=== PATIENT | female | born 1960 | race Caucasian/White ===

== ENCOUNTER → 2024-01-14 15:40 | Outpatient (REF) | payer BC, SELFPAY | LOC: HWRAD 15:40 | PROVIDERS: ATTENDING PHYSICIAN Nurse Practitioner | DX: M25.551 Pain in right hip (principal); Z00.00 Encounter for general adult medical examination without abnormal findings | CPT/HCPCS: 73502; 73564 ==

== ENCOUNTER → 2024-08-09 13:20 | Outpatient (REF) | payer MEDICARE, OTHER, SELFPAY | LOC: HWWDC 13:20 | PROVIDERS: ATTENDING PHYSICIAN Nurse Practitioner Adult Health; FAMILY PHYSICIAN Internal Medicine | DX: Z12.31 Encounter for screening mammogram for malignant neoplasm of breast (principal); Z78.0 Asymptomatic menopausal state | CPT/HCPCS: 77063; 77067; 77080 ==

== ENCOUNTER → 2024-08-18 09:38 | Outpatient (REF) | payer MEDICARE, OTHER, SELFPAY | LOC: WDC 09:38 | PROVIDERS: ATTENDING PHYSICIAN Nurse Practitioner Adult Health; FAMILY PHYSICIAN Internal Medicine | DX: R92.8 Other abnormal and inconclusive findings on diagnostic imaging of breast (principal) | CPT/HCPCS: 77065 ==

== ENCOUNTER → 2024-08-29 06:59 | Outpatient (REF) | payer MEDICARE, OTHER, SELFPAY ==
--- NOTE | 2024-08-29 13:57 | OID.BR.INTR ---
[facility] Breast Navigator - Initial
- -
Date of Contact: 08/29/24
Met with patient. Patient given written information on navigator services available at [facility]. Will follow up as needed per protocol.
== END ==
LOC: WDC 06:59
PROVIDERS: ATTENDING PHYSICIAN Nurse Practitioner Adult Health; FAMILY PHYSICIAN Internal Medicine
DX: R92.1 Mammographic calcification found on diagnostic imaging of breast (principal)
CPT/HCPCS: 88305; 19081; 76098; 88342; 88360; A4648

== ENCOUNTER 2024-10-12 06:14 | Day surgery (SDC) | payer MEDICARE, OTHER, SELFPAY | END 2024-10-12 08:58 | disposition home or self-care (01) | LOC: GI 06:14 | PROVIDERS: ATTENDING PHYSICIAN Surgery | DX: Z12.11 Encounter for screening for malignant neoplasm of colon (principal); K57.30 Diverticulosis of large intestine without perforation or abscess without bleeding; Z86.0100 Personal history of colon polyps, unspecified | CPT/HCPCS: G0105 ==

== ENCOUNTER → 2024-10-27 07:59 | Outpatient (REF) | payer MEDICARE, OTHER, SELFPAY | LOC: WDC 07:59 | PROVIDERS: ATTENDING PHYSICIAN Surgery | DX: N60.99 Unspecified benign mammary dysplasia of unspecified breast (principal) | CPT/HCPCS: 19281; A4648 ==

== ENCOUNTER 2024-10-28 06:41 | Day surgery (SDC) | payer MEDICARE, OTHER, SELFPAY ==
[2024-10-10 13:41] VITALS: BMI 41.9
--- NOTE | 2024-10-11 13:51 | PTCARENOTE ---
PAtients 10/10 ECG abnormal- reviewed by Dr. Flood- no additional interventions required
[2024-10-28 10:35] VITALS: BP 176/99; BMI 41.9
[2024-10-28] MEDS: TYLENOL 1000 MG PO (10:45)
--- NOTE | 2024-10-28 13:22 | W.IMMPOSTOP ---
Surgical Immed Post Op Note
-
Primary Surgeon: Renny
Assisting Surgeon: None
Pre-op Diagnosis: Left breast atypical ductal hyperplasia
Post-op Diagnosis: Left breast atypical ductal hyperplasia
Procedure Performed: Left localized lumpectomy
Anesthesia Type: TIVA
Specimen / Cultures: Left lumpectomy and posterior margin
Estimated Blood Loss: 4cc
Complications: None
Operative Findings: clip and reflector in specimen but at edge, so posterior margin taken separately
--- NOTE | 2024-10-28 13:23 | OR.RPT ---
Operative Report
Operative Report
Pre-Op DX: Left breast atypical ductal hyperplasia
Post-Op DX: Left breast atypical ductal hyperplasia
Procedure: Left localized lumpectomy
Surgeon: Renny
Anes: CHRIST
Specimens: Left lumpectomy and posterior margin
The patient is a 64-year-old female who had image detected indeterminate calcifications bleeding to stereotactic biopsy showing atypical ductal hyperplasia. She presents for left localized lumpectomy and possible oncoplastic closure. On the day
prior to the procedure the patient presented to the [facility] and underwent a Bre retread mold operator reflector placement. On the day of surgery she presented to same-day surgical services and verified site and procedure. DVT and antibiotic
prophylaxis were provided and the patient was present taken to the operating room. In the supine position intravenous sedation was delivered. Left breast was prepped and draped in usual sterile fashion. All tissues were anesthetized with 1%
lidocaine plain. The reflector signal was sounded out with a Bre probe and a curvilinear medial incision was made sharply with the blade. Skin flaps were elevated with cautery and dissection was carried down to the reflector site. A wide
lumpectomy was performed using the cautery. Time out of body was noted and the specimen was oriented for the pathologist. Specimen radiography confirmed the presence of the original biopsy clip and the Bre reflector within it however there were
some calcifications on the margin. Therefore a separate posterior margin was harvested and sent for permanent analysis. This was oriented as well. Hemostasis was verified. Marcaine 0.5% plain was instilled and the wound was closed using simple
interrupted 3-0 plain on deep intermediate subcutaneous tissue and skin was closed with a running subcuticular 4-0 Monocryl. Surgical glue and a sterile compressive dressing were applied. All sponge needle and instrument counts were correct and
the patient was transferred to the recovery room in stable condition
()
[2024-10-28 13:26] VITALS: BP 116/75
[2024-10-28 13:30] VITALS: BP 113/72
[2024-10-28 13:49] VITALS: BP 119/82
[2024-10-28 14:00] VITALS: BP 124/80
[2024-10-28 14:15] VITALS: BP 124/82
== END 2024-10-28 14:30 | disposition home or self-care (01) ==
LOC: SDS 06:41
PROVIDERS: ATTENDING PHYSICIAN Surgery
DX: N60.12 Diffuse cystic mastopathy of left breast (principal); N60.92 Unspecified benign mammary dysplasia of left breast
CPT/HCPCS: 19301; 88305; 88307; 76098; A4648

== ENCOUNTER → 2025-04-07 14:43 | Outpatient (REF) | payer MEDICARE, OTHER, SELFPAY | LOC: WDC 14:43 | PROVIDERS: ATTENDING PHYSICIAN Hospitalist | DX: Z12.39 Encounter for other screening for malignant neoplasm of breast (principal); N60.99 Unspecified benign mammary dysplasia of unspecified breast | CPT/HCPCS: 76641 ==

== ENCOUNTER → 2025-09-05 11:08 | Outpatient (REF) | payer MEDICARE, OTHER, SELFPAY | LOC: HWRAD 11:08 | PROVIDERS: ATTENDING PHYSICIAN Internal Medicine | DX: M48.061 Spinal stenosis, lumbar region without neurogenic claudication (principal) | CPT/HCPCS: 72100 ==

== ENCOUNTER → 2025-09-20 06:59 | Outpatient (REF) | payer MEDICARE, OTHER, SELFPAY | LOC: HWWDC 06:59 | PROVIDERS: ATTENDING PHYSICIAN Nurse Practitioner Adult Health; FAMILY PHYSICIAN Hospitalist | DX: Z12.31 Encounter for screening mammogram for malignant neoplasm of breast (principal) | CPT/HCPCS: 77063; 77067 ==